=== PATIENT | female | born 1975 | race Caucasian/White ===

== ENCOUNTER → 2020-07-18 14:05 | Outpatient (REF) | payer BC, SELFPAY | LOC: ANHLAB 14:05 | PROVIDERS: PCP Internal Medicine; Visit Provider Nurse Practitioner | DX: R22.9 Localized swelling, mass and lump, unspecified (principal); D17.0 Benign lipomatous neoplasm of skin and subcutaneous tissue of head, face and neck | CPT/HCPCS: 88304 ==

== ENCOUNTER → 2021-01-03 15:42 | Outpatient (CLI) | payer BC, SELFPAY ==
--- NOTE | ~2021-01-03 | MM_ITS ---
EXAMINATION: MM scrn wade implant BI w gayatri HISTORY: Screening mammogram TECHNIQUE: Craniocaudal and mediolateral oblique 3-D tomosynthesis images with implant displacement a nd synthetic 2-D images were generated. Craniocaudal and mediolateral oblique views of the breasts wi thout implant displacement were obtained using full field digital mammography. CAD analysis was submi tted and interpreted. COMPARISON: 11/19/2019, 10/10/2018, 09/13/2017 bilateral implant digital screening mammogram examinati ons BREAST PARENCHYMAL COMPOSITION: There are scattered areas of fibroglandular density. FINDINGS: Status post bilateral augmentation mammoplasty. There is no evidence of suspicious mass, ca lcification, or architectural distortion to suggest malignancy in either breast. There has been no camacho spicious interval change. IMPRESSION: 1. No mammographic evidence of malignancy. 2. Recommend routine screening mammography in one year. BI-RADS Category 1: Negative Reviewed, dictated and finalized at location A. STERED NURSE FIRST ASSISTANT
== END ==
PROVIDERS: PCP Internal Medicine; Visit Provider Nurse Practitioner
DX: Z12.31 Encounter for screening mammogram for malignant neoplasm of breast (principal)
CPT/HCPCS: 77063; 77067

== ENCOUNTER 2022-01-05 01:24 | Day surgery (SDC) | payer BC, SELFPAY ==
[2021-12-29 14:11] VITALS: BMI 25.9
[2022-01-05 10:17] VITALS: BP 125/85; PULSE 96; RESP 18; TEMP 36.2; O2SAT 99; BMI 26.1
[2022-01-05] MEDS: LACTATED RINGERS 1,000 ML 150 ML IV CONT (10:29)
--- NOTE | 2022-01-05 11:11 | PM.HPGS ---
History of Present Illness History of Present Illness Consent: Risks, benefits, and alternatives have been discussed and questions answered. Patient agrees to proceed with procedure. Chief complaint: neoplasm screening Narrative: Lyndsey Abrams is a 46 year old female here for first screening colonoscopy Review of Systems Constitutional: Constitutional: Denies headache(s) and Denies weakness Eyes: Eyes: Denies blurry vision ENT: Reports Normal hearing present, Denies headache(s) and Denies neck pain Cardiovascular: Cardiovascular: Denies chest pain and Denies dyspnea Respiratory: Respiratory: Denies dyspnea Gastrointestinal: Gastrointestinal: Reports no additional gastrointestinal complaints Genitourinary: Genitourinary: Denies dysuria Musculoskeletal: Musculoskeletal: Denies neck pain Integumentary/Breasts: Skin/Breast: Denies dry skin Neurologic: Reports Normal hearing present, Denies headache(s) and Denies weakness Psychiatric: Psychiatric: Denies anxiety Endocrine: Endocrine: Denies change in body appearance Hematologic/Lymphatic: Hematologic/Lymphatic: Denies easy bleeding Allergic/Immunologic: Allergic/Immunologic: Denies urticaria ON LICENSE OF [facility] Past Medical History Medical History (Updated 01/05/22 @ 11:12 by Dada Horton MD) Colon cancer screening Thyroid disease Surgical History Surgical History History of augmentation mammoplasty 2002 Family History Family History Sibling Diabetes mellitus Family history of obesity Hypertension Father Family history of obesity Hypertension Patient's father is in good health Family history of cardiovascular disease Skin cancer Mother Family history of obesity Family history of malignant neoplasm of urinary bladder Social History Social History Smoking status: Never smoker Alcohol intake: current Drinks per week: 1 Substance use: never Substance use type: does not use Living arrangements: with family Spiritual care concerns: No Meds Home Medications and Allergies Home Medications Medication Instructions Recorded Confirmed Type etonogestrel 0.12 mg-ethinyl 1 vag ring VAGINAL ONCE 05/30/20 12/29/21 History estradiol 0.015 mg/24 hr vaginal ring multivitamin 1 tablet PO DAILY 05/30/20 12/29/21 History testosterone cypionate IM .3 mo 05/30/20 History [Depo-Testosterone] thyroid (pork) 120 mg tablet 150 mg PO DAILY tablet 05/30/20 12/29/21 History metformin 500 mg PO DAILY 12/29/21 12/29/21 History semaglutide 1.7 mg IM WEEKLY 12/29/21 12/29/21 History spironolactone 100 mg PO DAILY 12/29/21 12/29/21 History Allergies Allergy/AdvReac Type Severity Reaction Status Date / Time No Known Allergies Allergy Verified 01/05/22 10:17 Vital Signs Vital Signs - 24 hr 01/05/22 10:17 Temperature 97.1 F L Pulse Rate 96 Respiratory Rate 18 Blood Pressure 125/85 Pulse Oximetry 99 Exam Const: General: comfortable and no acute distress HENMT: General nose exam: Normal nares present Eyes: General: appearance normal, both eyes and all related structures Neck: Neck: no JVD Resp: Auscultation: clear to auscultation bilaterally Cardio: Rate: regular rate Rhythm: regular rhythm GI: Inspection: non-distended GI Palp: Yes Soft to palpation Skin: General skin exam: normal color Neuro: General: gait normal Speech: normal speech Extrem: General: normal to inspection Psych: Mental Status: mental status grossly normal Assessment and Plan Assessment and plan (1) Colon cancer screening: Code(s): Z12.11 - Encounter for screening for malignant neoplasm of colon Status: Acute Assessment and Plan: colonoscopy
[2022-01-05 11:30] VITALS: BP 122/77; PULSE 101; RESP 20; O2SAT 100
[2022-01-05 11:40] VITALS: BP 117/88; PULSE 84; RESP 15; O2SAT 97
[2022-01-05 11:50] VITALS: BP 125/94; PULSE 88; RESP 18; O2SAT 100
== END 2022-01-05 12:00 | disposition home or self-care (01) ==
PROVIDERS: PCP Internal Medicine; Visit Provider Internal Medicine Gastroenterology
PROC: 0DJD8ZZ Inspection of Lower Intestinal Tract, Via Natural or Artificial Opening Endoscopic (ICD-10-PCS; CPT 45378; principal; 2022-01-05 11:30)
DX: Z12.11 Encounter for screening for malignant neoplasm of colon (principal); D12.2 Benign neoplasm of ascending colon; K57.30 Diverticulosis of large intestine without perforation or abscess without bleeding
CPT/HCPCS: 45380; 88305; J7120

== ENCOUNTER → 2022-03-02 07:49 | Outpatient (CLI) | payer BC, SELFPAY ==
--- NOTE | ~2022-03-02 | MM_ITS ---
EXAMINATION: MM scrn wade implant BI w gayatri HISTORY: Screening mammogram TECHNIQUE: Craniocaudal and mediolateral oblique 3-D tomosynthesis images with implant displacement a nd synthetic 2-D images were generated. Craniocaudal and mediolateral oblique views of the breasts wi thout implant displacement were obtained using full field digital mammography. CAD analysis was submi tted and interpreted. COMPARISON: 01/03/2021, 11/19/2019, 10/10/2018, 09/13/2017, 08/02/2016 bilateral implant screening mammog [place] examinations BREAST PARENCHYMAL COMPOSITION: There are scattered areas of fibroglandular density. FINDINGS: Status post bilateral augmentation mammoplasty. Stable mild fibroglandular asymmetry includ ing chronic increased density in the left lateral subareolar area dating back to 08/02/2016.. There is no evidence of suspicious mass, calcification, or architectural distortion to suggest malignancy in either breast. There has been no suspicious interval change. IMPRESSION: 1. No mammographic evidence of malignancy. 2. Recommend routine screening mammography in one year. BI-RADS Category 2: Benign finding(s). Reviewed, dictated and finalized at location A.
== END ==
PROVIDERS: PCP Internal Medicine; Visit Provider Nurse Practitioner
DX: Z12.31 Encounter for screening mammogram for malignant neoplasm of breast (principal)
CPT/HCPCS: 77063; 77067

== ENCOUNTER → 2023-02-12 15:03 | Outpatient (CLI) | payer OTHER, SELFPAY ==
--- NOTE | ~2023-02-12 | MMUS_ITS ---
EXAMINATION: MM diag wade implant BI w gayatri, US breast LT limited HISTORY: Mastodynia TECHNIQUE: Craniocaudal, mediolateral, and mediolateral oblique 3-D tomosynthesis images with implant displacement of the breasts were performed and synthetic 2-D images were generated. Craniocaudal, m ediolateral oblique, and mediolateral views of the breasts without implant displacement were obtained using full field digital mammography. CAD analysis was submitted and interpreted. High resolution li mited left breast ultrasound was performed. COMPARISON: 03/02/2022, 01/03/2021, 11/19/2019, 10/10/2018 BREAST PARENCHYMAL COMPOSITION: There are scattered areas of fibroglandular density. FINDINGS: MAMMOGRAPHIC FINDINGS: Again noted is chronic focal asymmetry in the subareolar aspect of the left breast. No suspicious mas s, calcification, or architectural distortion are identified in either breast to suggest malignancy. There has been no suspicious interval change. No mammographic correlate is identified for the patient 's reported left breast pain. ULTRASOUND: There is no evidence of focal abnormal solid or cystic lesion in the vicinity of the patient's left b reast pain. IMPRESSION: 1. No specific mammographic or sonographic correlate is identified for the patient's reported left br east pain. Further evaluation at this time should be based on clinical assessment. Continued follow-u p physical examination is recommended. 2. Recommend routine screening mammography in one year. BI-RADS Category 2: Benign finding(s). Reviewed, dictated and finalized at location A. IMPRESSION: 1. No specific mammographic or sonographic correlate is identified for the sonia ent's reported left breast pain. Further evaluation at this time should be base d on clinical assessment. Continued follow-up physical examination is recommend ed. 2. Recommend routine screening mammography in one year. BI-RADS Category 2: Benign finding(s).
== END ==
PROVIDERS: PCP Internal Medicine; Visit Provider Advanced Practice Midwife
DX: T85.42XA Displacement of breast prosthesis and implant, initial encounter (principal); N64.4 Mastodynia
CPT/HCPCS: 76642; 77062; 77066; G0279

== ENCOUNTER → 2023-12-20 15:17 | Outpatient (CLI) | payer OTHER, SELFPAY ==
--- NOTE | ~2023-12-20 | MM_ITS ---
EXAMINATION: MM scrn wade implant BI w gayatri HISTORY: Screening mammogram TECHNIQUE: Craniocaudal and mediolateral oblique 3-D tomosynthesis images with implant displacement a nd synthetic 2-D images were generated. Craniocaudal and mediolateral oblique views of the breasts wi thout implant displacement were obtained using full field digital mammography. CAD analysis was submi tted and interpreted. COMPARISON: Comparison to multiple prior studies sequentially, with oldest reviewed study dated 08/28. BREAST PARENCHYMAL COMPOSITION: Not dense: There are scattered areas of fibroglandular density. FINDINGS: There is no evidence of suspicious mass, calcification, or architectural distortion to sugg est malignancy in either breast. There has been no suspicious interval change. IMPRESSION: 1. No mammographic evidence of malignancy. 2. Recommend routine screening mammography in one year. BI-RADS Category 1: Negative Reviewed, dictated and finalized at location A. SECURITY CONSULTANT
== END ==
PROVIDERS: PCP Nurse Practitioner; Visit Provider Nurse Practitioner
DX: Z12.31 Encounter for screening mammogram for malignant neoplasm of breast (principal)
CPT/HCPCS: 77063; 77067

== ENCOUNTER 2025-01-12 10:00 | Outpatient (CLI) | payer OTHER, SELFPAY ==
--- NOTE | ~2025-01-12 | MM_ITS ---
EXAMINATION: MM scrn wade implant BI w gayatri HISTORY: Screening mammogram TECHNIQUE: Craniocaudal and mediolateral oblique 3-D tomosynthesis images with implant displacement a nd synthetic 2-D images were generated. Craniocaudal and mediolateral oblique views of the breasts wi thout implant displacement were obtained using full field digital mammography. CAD analysis was submi tted and interpreted. COMPARISON: Comparison to multiple prior studies sequentially, with oldest reviewed study dated 09/27. BREAST PARENCHYMAL COMPOSITION: Not dense: There are scattered areas of fibroglandular density. FINDINGS: There is no evidence of suspicious mass, calcification, or architectural distortion to sugg est malignancy in either breast. There has been no suspicious interval change. IMPRESSION: 1. No mammographic evidence of malignancy. 2. Recommend routine screening mammography in one year. BI-RADS Category 1: Negative Reviewed, dictated and finalized at location B.
== END 2025-01-12 10:01 | disposition home or self-care (01) ==
LOC: MICIMG 10:00
PROVIDERS: PCP Nurse Practitioner; Visit Provider Nurse Practitioner
DX: Z12.31 Encounter for screening mammogram for malignant neoplasm of breast (principal)
CPT/HCPCS: 77063; 77067

== ENCOUNTER 2025-09-09 18:44 | Emergency (ER) | payer OTHER, SELFPAY ==
--- OUTSIDE RECORDS SUMMARY | 2025-09-09 18:47 | XMS_ITS | Clinical Summary ---
Author Organization [facility] Address [address] [place] [address] Care Team Providers Care Disaster Response Director Name Role Phone Chen Miguel CONTROL ROOM TENDER Primary Care Provider Allergies No known active allergies Medications NUVARING 0.12-0.015 MG/24HR RING insert 1 vaginal ring by vaginal route once a month leave in place for 3 weeks, remove for 1 week Vaginal [id number] 0 Active metFORMIN ER (GLUCOPHAGE-XR ) 500 MG 24 hr tablet Take 1 tablet (500 mg total) by mouth 2 (two) times daily. 3 Active testosterone 75 MG pellet Inject 1 each (75 mg total) into the skin once. Active thyroid (ARMOUR) 60 MG OR tablet Take 1 tablet (60 mg total) by mouth daily. Active semaglutide-we ight management (WEGOVY) 1.7 mg/dose injection (PEN)Indicatio ns:Weight Loss Inject 1.7 mg into the skin once a week. Indications : Weight Loss 5 Active ZEPBOUND 10 MG/0.5ML injection Inject 10 mg into the skin once a week. 4 09/02/20 25 Discontinued thyroid (ARMOUR THYROID) 300 MG Tab Take 1 tablet by mouth daily. 7 09/02/20 25 Discontinued Active Problems Problem Noted Date Diagnosed Date Polycythemia 09/03/2025 Hypothyroidism, unspecified type 09/03/2024 BMI 25.0-25.9,adult 09/03/2024 Polyp of colon, unspecified part of colon, unspe cified type 09/03/2024 Encounters Date Type Department Care Team Description 09/07/2025 Telephone [facility] Medical [facility] [place] [address] [facility] [address] [place] [address] Chen Miguel, CONTROL ROOM TENDER Record Request 09/02/2025 3:00 PM PRINTING SUPPLIES SALES REPRESENTATIVE Office [facility] [place] [address] [place] [address] Chen Miguel, CONTROL ROOM TENDER Physical 09/02/2025 Travel from Last 3 Months Immunizations Immunization Administration Dates Next Due Fluzone (IIV3, Trivalent, 0. 5 ML Prefilled Syringe) 09/02/2025,09/03/2024 Influenza (Generic) 07/15/2018 Influenza Adult (Generic) 07/26/2023,,08/10/2017,2015 Td, Adsorbed, Preservative F ree, Adult Use, Lf Unspecified 12/14/2018 Tdap (Adacel) 09/27/2019 Family History Medical History Relation Comments COPD Father Heart Disease Father 1980 Hyperlipidemia Father Hypertension Father Lung Cancer Mother Polycystic kidney disease Paternal Grandmother Relation Status Comments Father Mother Paternal Grandmother Social History Tobacco Use Types Packs/Day Years Used Date Smoking Tobacco: Never Passive Smoke Exposure: Never Smokeless Tobacco: Never Tobacco Cessation:Counseling Given: No Alcohol Use Standard Drinks/Week Comments Yes 6.7 (1 standard drink = 0.6 oz p ure alcohol) Comments No Sex and Gender Information Value Date Recorded Sex Assigned at Female 09/02/2025 3:03 PM PRINTING SUPPLIES SALES REPRESENTATIVE Legal Sex Female 12:47 PM PRINTING SUPPLIES SALES REPRESENTATIVE Gender Identity Female 09/02/2025 3:03 PM PRINTING SUPPLIES SALES REPRESENTATIVE Sexual Orientation Not on file Last Filed Vital Signs Vital Sign Reading Time Taken Comments Blood Pressure 134/80 09/02/2025 3:05 PM PRINTING SUPPLIES SALES REPRESENTATIVE Pulse 96 09/02/2025 3:05 PM PRINTING SUPPLIES SALES REPRESENTATIVE Temperature 36.7 C (98.1 F) 09/03/2024 3:26 PM PRINTING SUPPLIES SALES REPRESENTATIVE Respiratory Rate 16 09/02/2025 3:05 PM PRINTING SUPPLIES SALES REPRESENTATIVE Oxygen Saturation 100% 09/02/2025 3:05 PM PRINTING SUPPLIES SALES REPRESENTATIVE Inhaled Oxygen Concentration - - Weight 72.9 kg (160 lb 12.8 oz) 09/02/2025 3:05 PM PRINTING SUPPLIES SALES REPRESENTATIVE Height 167.6 cm (5' 6) 09/02/2025 3:05 PM PRINTING SUPPLIES SALES REPRESENTATIVE Body Mass Index 25.95 09/02/2025 3:05 PM PRINTING SUPPLIES SALES REPRESENTATIVE Plan of Treatment Upcoming Encounters Date Type Department Care Team (Late st Contact Info) Description 09/09/2026 4:00 PM PRINTING SUPPLIES SALES REPRESENTATIVE Office Visit [facility] [place] [address] [place] [address] Chen Miguel, OLAYINKA [address] [facility] [address] [place] [address] Health Maintenance Due Date Last Done Comments Cervical Cancer Screening Pap Smear (Age 30 to 64) Every 3 Years 1975 Colorectal Cancer Screening Colonoscopy (10 Years) 1975 Hepatitis C 1993 Hepatitis B Vaccines (1 of 3 - 19+ 3-dose series) 1994 Cervical Cancer Screening Pap with HPV Testing (Age 30 to 64) Every 5 Years 2005 Cervical Cancer Screening with HPV 2005 Mammogram Screening 2015 PHQ-2 (Physician [place]) 10/28/2024 Pneumococcal Vaccine: 50+ Years (1 of 1 - PCV) 2025 Zoster Vaccines (1 of 2) 2025 Annual Physical 09/02/2026 09/02/2025, 09/03/2024 COVID-19 Vaccine ( - season) 2026 09/04/2022, 09/28/2021, 12/16/2020, Additional history exists Postponed from 06/28/2025 (Patient Refused) DTaP, Tdap and Td Vaccines (2 - Td or Tdap) 09/27/2029 09/27/2019, 12/14/2018 Influenza Adult Completed 09/02/2025, 04/2024, 07/26/2023, Additional history exists Hepatitis A Vaccines Aged Out No long er eligible based on patient's age to complete this topic Meningococcal B Vaccine Aged Out No l onger eligible based on patient's age to complete this topic Meningococcal Vaccine Aged Out No pinky serene eligible based on patient's age to complete this topic RSV Immunizations Under 20 Months Aged Out No longer eligible based on patient's age to complete this topic Insurance [facility] Care Teams Disaster Response Director Relationship Specialty Start Date End Date Chen Miguel, CONTROL ROOM TENDER [address] [facility] [address] [place] [address] PCP - General NURSE PRACTITIONER 09/01/24
--- OUTSIDE RECORDS SUMMARY | 2025-09-09 18:47 | XMS_ITS | Clinical Summary ---
Author Organization [facility] Address [address] [place] [phone] Phone Care Team Providers Care Distribution Coordinator Name Role Phone Yoandy Hinkle MD Primary Care Provider Unavai lable Allergies No known active allergies Medications oxycodone-acetam inophen (PERCOCET) 5-325 mg Oral tablet Take 1 Tab by mouth every 4 hours as needed (For Pain Scale 4-6). 20 Tab 0 03/25/2010 Active Active Problems Problem Noted Date Diagnosed Date MIL, pit, GBS neg 03/23/2010 Encounters Date Type Department Care Team Description 08/31/2025 External Device Data STL ABSTRACTION Provider, Abstract 08/25/2025 External Device Data STL ABSTRACTION Provider, Abstract 08/24/2025 External Device Data ST[facility] ABSTRACTION Provider, Abstract 08/18/2025 External Device Data STL ABSTRACTION Provider, Abstract 08/17/2025 External Device Data ST[place] ABSTRACTION Provider, Abstract 07/14/2025 External Device Data STL ABSTRACTION Provider, Abstract 07/13/2025 External Device Data STL ABSTRACTION Provider, Abstract from Last 3 Months Immunizations Immunization Administration Dates Next Due INFLUENZA VACCINE QUADRIVALENT 6 MOS UP PF IM Family History Medical History Relation Name Comments Healthy Brother Heart Disease Father Hypertension Father Healthy Mother Healthy Sister Relation Name Status Comments Brother Daughter Alive Father Alive Mother Alive Sister Social History Tobacco Use Types Packs/Day Years Used Date Smoking Tobacco: Never Alcohol Use Standard Drinks/Week Comments No 0 (1 standard drink = 0.6 oz pur e alcohol) Comments Unknown Sex and Gender Information Value Date Recorded Sex Assigned at Not on file Legal Sex Female 4:18 AM TANKAGE GRINDER OPERATOR Gender Identity Not on file Sexual Orientation Not on file Last Filed Vital Signs Vital Sign Reading Time Taken Comments Blood Pressure 110/74 03/26/2010 8:20 AM CDT Pulse 80 03/26/2010 8:20 AM CDT Temperature 36.9 C (98.4 F) 03/26/2010 8:20 AM CDT Respiratory Rate 16 03/26/2010 8:20 AM CDT Oxygen Saturation 96% 03/24/2010 3:56 PM CDT Inhaled Oxygen Concentration - - Weight 88 kg (194 lb) 03/23/2010 6:42 PM CDT Height 170.2 cm (5' 7) 03/23/2010 6:42 PM CDT Body Mass Index 30.38 03/23/2010 6:42 PM CDT Plan of Treatment Health Maintenance Due Date Last Done Comments DTAP/TDAP/TD VACCINES (1 - Tdap) 1994 HEPATITIS B VACCINES (1 of 3 - 19+ 3-dose series) 07/29 HPV/Cotest (21-29) 1996 CERVICAL CANCER SCREENING 2005 HPV/Cotest (30-65) 2005 PAP SMEAR 2005 BREAST CANCER SCREENING 2015 COLORECTAL SCREENING 2020 Colorectal Cancer Screening 2020 FIT-DNA Q 3 years 2020 FIT/FOBT Q 1 year 2020 Flex Sig/CT Colonography Q 5 years 2020 INFLUENZA VACCINE (#1) 2025 07/26/2023 ZOSTER VACCINE (1 of 2) 2025 Insurance [facility] [employer] [address] OPEN ACCESS HMO RX [facility] [employer] Advance Directives For more information, please contact: [phone] * Full Code (Latest Code Status on File) Date Activated Date Inactivated Comments 03/24/2010 6:35 AM 03/26/2010 1:07 PM * Full Code Date Activated Date Inactivated Comments 03/23/2010 6:57 PM 03/24/2010 6:35 AM Care Teams Distribution Coordinator Relationship Specialty Start Date End Date Yoandy Hinkle MD PCP - General Sports Medicine 03/16/10
--- OUTSIDE RECORDS SUMMARY | 2025-09-09 18:47 | XMS_ITS | Patient Health Record ---
Author Organization [facility] Address [address] [facility] [address] [place] [address] Support Name Relationship Address Phone Lyndsey Abrams Guarantor Unknown [phone] Allergies No Known Allergies Reason For Referral No Information Medications Medication SIG (Take, Route, Frequency, Duration) Notes Start Date End Date Status NuvaRing 0.12-0.015 MG/24HR insert 1 vaginal ring by vaginal route once a month leave in place for 3 weeks, remove for 1 week Vaginal [id number]-16 Active Plan Of Treatment No Information Insurance Providers Payer Name Payer Address Payer Phone Subscriber Number Group Number Insured Name Patient Relationship to Insured Coverage Start Date Coverage End Date [employer] [address] [place] [id number] Lyndsey Abrams Self - patient is the insured 3 Medical (General) History Surgical History Surgery Date(Month/Year) * NO SURGERIES; 2013-09-15
--- OUTSIDE RECORDS SUMMARY | 2025-09-09 18:47 | XMS_ITS | Encounter Summary ---
Author Organization [facility] Address [facility] [place] [address] Care Team Providers Care Pipe Finishing Supervisor Name Role Phone Chen Miguel NP Primary Care Provider [phone] Encounter Details Date Type Department Care Team (Latest Contact Info) Description 09/01/2024 [employer] Message [facility] - [place] [address] [place], [place] [id number] Chen Miguel NP [address] [facility] [address] [place] [address] Copy of Insurance Card Social History Tobacco Use Types Packs/Day Years Used Date Smoking Tobacco: Never Assessed Comments Unknown Sex and Gender Information Value Date Recorded Sex Assigned at Female 09/02/2025 3:03 PM ASSOCIATE PROFESSOR OF ECONOMICS Legal Sex Female 12:47 PM ASSOCIATE PROFESSOR OF ECONOMICS Gender Identity Female 09/02/2025 3:03 PM ASSOCIATE PROFESSOR OF ECONOMICS Sexual Orientation Not on file documented as of this encounter Plan of Treatment Upcoming Encounters Date Type Department Care Team (Late st Contact Info) Description 09/09/2026 4:00 PM ASSOCIATE PROFESSOR OF ECONOMICS [facility] - [place] [address] [place], [place] [id number] Chen Miguel JOINTER OPERATOR [address] [facility] [address] [place], [place] [id number] documented as of this encounter Visit Diagnoses Not on filedocumented in this encounter Care Teams Pipe Finishing Supervisor Relationship Specialty Start Date End Date Chen Miguel, JOINTER OPERATOR [address] [facility] [address] [place] [address] PCP - General NURSE PRACTITIONER 09/01/24 documented as of this encounter
--- OUTSIDE RECORDS SUMMARY | 2025-09-09 18:47 | XMS_ITS | Encounter Summary ---
Author Organization [facility] Address [address] [place] [address] Care Team Providers Care Administrative Law Judge Name Role Phone Yoandy Hinkle MD Primary Care Provider Rich ding Encounter Details Date Type Department Care Team (Late st Contact Info) Description 10/26/2008 Outpatient Historical [facility] [place] [address] [place] [address] Normal Delivery Social History Tobacco Use Types Packs/Day Years Used Date Smoking Tobacco: Never Assessed Comments Unknown Sex and Gender Information Value Date Recorded Sex Assigned at Not on file Legal Sex Female 4:18 AM [employer] SALESPERSON Gender Identity Not on file Sexual Orientation Not on file documented as of this encounter Plan of Treatment Not on file documented as of this encounter Visit Diagnoses Diagnosis Normal delivery documented in this encounter Care Teams Administrative Law Judge Relationship Specialty Start Date End Date Yoandy Hinkle MD PCP - General Sports Medicine 03/16/10 documented as of this encounter
--- OUTSIDE RECORDS SUMMARY | 2025-09-09 18:47 | XMS_ITS | Clinical Summary ---
Author Organization [facility] Address [address] [facility] [place] [address] Care Team Providers Care Slab Lifting Engineer Name Role Phone Hedy Shore MD Primary Care Provider [phone]- [phone] Allergies No known active allergies Medications etonogestreL-et hinyl estradioL (NUVARING, ELURYNG) 0.12-0.015 mg/24 hr vaginal ring 1 Active spironolactone (ALDACTONE) 100 mg tablet 1 Active [place] Thyroid 300 mg tablet TAKE 1/2 TABLET BY MOUTH EVERY MORNING 30 MINUTES BEFORE EATING OR DRINKING 1 Active testosterone (TESTOPEL) 75 mg pellet Inject under the skin once Active MULTIVITAMIN ORAL Take by mouth Active UNABLE TO FIND Inject under the skin Med Name: Naltrexone 90 mg Active metFORMIN (GLUCOPHAGE) 500 mg tablet 2 Active Active Problems Problem Noted Date Diagnosed Date Hypotestosteronemia 08/21/2021 Surgical History Surgery Date Site/Laterality Comments BREAST SURGERY breast implants TONSILLECTOMY/ADENOIDECTOMY Medical History Medical History Date Comments Hypothyroid Family History Medical History Relation Name Comments Heart attack Father Hyperlipidemia Father Lung cancer Mother Cancer Other Heart disease Other Hypertension Other Polycystic kidney disease Paternal Grandmother Relation Name Status Comments Father Alive Mother Other Paternal Grandmother Social History Tobacco Use Types Packs/Day Years Used Date Smoking Tobacco: Never Smokeless Tobacco: Never AUDIT-C Answer Date Recorded Q1: How often do you have a drink containing alc ohol? 2-3 times a week 08/18/2021 Q2: How many drinks containi ng alcohol do you have on a typical day when you are drinking? 1 or 2 08/18/2021 Q3: How often do you have si x or more drinks on one occasion? Never 08/18/2021 Personal Safety Answer Date Recorded Getting School Help Needed Not on file 01/09 Comments Unknown Sex and Gender Information Value Date Recorded Sex Assigned at Not on file Legal Sex Female 9:09 AM ROOMING HOUSE KEEPER Gender Identity Not on file Sexual Orientation Not on file Last Filed Vital Signs Vital Sign Reading Time Taken Comments Blood Pressure 116/73 08/20/2022 7:59 AM CDT Pulse 64 08/20/2022 7:59 AM CDT Temperature 35.7 C (96.3 F) 08/18/2021 2:00 PM CDT Respiratory Rate - - Oxygen Saturation - - Inhaled Oxygen Concentration - - Weight 71.7 kg (158 lb) 08/20/2022 7:59 AM CDT Height 170.2 cm (5' 7) 08/20/2022 7:59 AM CDT Body Mass Index 24.75 08/20/2022 7:59 AM CDT Plan of Treatment Not on file Insurance ANTHEM ACCESS ANTHEM [place]ESS [place] [address] [place] [address] BLUE ACCESS OOS Care Teams Slab Lifting Engineer Relationship Specialty Start Date End Date Hedy Shore MD PCP - General Internal Medicine 08/01/21
--- OUTSIDE RECORDS SUMMARY | 2025-09-09 18:47 | XMS_ITS | Encounter Summary ---
Author Organization [facility] Address [address] [place] [address] Care Team Providers Care Dev Ops Engineer Name Role Phone Chen Miguel NP Primary Care Provider Reason for Visit * Reason Onset Date Comments Record Request 09/07/2025 Encounter Details Date Type Department Care Team (Late st Contact Info) Description 09/07/2025 Telephone [facility] Medical [facility] [place] [address] [place], [place] [id number] Chen Miguel NP [address] [place], [place] [id number] Record Request Social History Tobacco Use Types Packs/Day Years Used Date Smoking Tobacco: Never Passive Smoke Exposure: Never Smokeless Tobacco: Never Alcohol Use Standard Drinks/Week Comments Yes 6.7 (1 standard drink = 0.6 oz p ure alcohol) Comments No Sex and Gender Information Value Date Recorded Sex Assigned at Female 09/02/2025 3:03 PM BEAUTY SPECIALIST Legal Sex Female 12:47 PM BEAUTY SPECIALIST Gender Identity Female 09/02/2025 3:03 PM BEAUTY SPECIALIST Sexual Orientation Not on file documented as of this encounter Progress Notes * Kiana Ross MA - 09/07/2025 6:52 AM CST I have faxed [facility] for colonoscopy report 09/08/25 = received and sent to PCP TY SPECIALIST TY SPECIALIST * Kiana Ross MA - 09/07/2025 6:50 AM CST I have faxed [facility] for mammogram report 09/07/25 = received and sent to PCP TY SPECIALIST TY SPECIALIST * Kiana Ross MA - 09/07/2025 6:46 AM CST I have faxed Dr. Henry for pap report 09/08/25 = received and sent to PCP TY SPECIALIST TY SPECIALIST documented in this encounter Plan of Treatment Upcoming Encounters Date Type Department Care Team (Late st Contact Info) Description 09/09/2026 4:00 PM BEAUTY SPECIALIST Office Visit [facility] [place] [address] [place] [address] Chen Miguel NP [address] [place] [address] documented as of this encounter Visit Diagnoses Not on filedocumented in this encounter Care Teams Dev Ops Engineer Relationship Specialty Start Date End Date Chen Miguel NP [address] [place] [address] PCP - General NURSE PRACTITIONER 09/01/24 documented as of this encounter
[2025-09-09 18:49] VITALS: BP 134/96; PULSE 90; RESP 16; TEMP 36.3; O2SAT 100
--- OUTSIDE RECORDS SUMMARY | 2025-09-09 21:07 | XMS_ITS | Clinical Summary ---
Author Organization [facility] Address [address] [place] [address] Care Team Providers Care Master Chef Name Role Phone Chen Miguel MIDDLEWARE ARCHITECT Primary Care Provider Allergies No known active allergies Medications NUVARING 0.12-0.015 MG/24HR RING insert 1 vaginal ring by vaginal route once a month leave in place for 3 weeks, remove for 1 week Vaginal [id number] 0 Active metFORMIN ER (GLUCOPHAGE-XR ) 500 [...] Type Department Care Team Description 09/07/2025 Telephone [facility] Medical [facility] Multispecialty [facility] [place] [address] [place] [address] Chen Miguel, MIDDLEWARE ARCHITECT Record Request 09/02/2025 3:00 PM GROUND EQUIPMENT MECHANIC Office Visit [facility] [place] [address] [place] [address] Chen Miguel, MIDDLEWARE ARCHITECT Physical 09/02/2025 Travel from Last 3 Months [...] Sex Assigned at Female 09/02/2025 3:03 PM GROUND EQUIPMENT MECHANIC Legal Sex Female 12:47 PM GROUND EQUIPMENT MECHANIC Gender Identity Female 09/02/2025 3:03 PM GROUND EQUIPMENT MECHANIC Sexual Orientation Not on file Last Filed Vital Signs Vital Sign Reading Time Taken Comments Blood Pressure 134/80 09/02/2025 3:05 PM GROUND EQUIPMENT MECHANIC Pulse 96 09/02/2025 3:05 PM GROUND EQUIPMENT MECHANIC Temperature 36.7 C (98.1 F) 09/03/2024 3:26 PM GROUND EQUIPMENT MECHANIC Respiratory Rate 16 09/02/2025 3:05 PM GROUND EQUIPMENT MECHANIC Oxygen Saturation 100% 09/02/2025 3:05 PM GROUND EQUIPMENT MECHANIC Inhaled Oxygen Concentration - - Weight 72.9 kg (160 lb 12.8 oz) 09/02/2025 3:05 PM GROUND EQUIPMENT MECHANIC Height 167.6 cm (5' 6) 09/02/2025 3:05 PM GROUND EQUIPMENT MECHANIC Body Mass Index 25.95 09/02/2025 3:05 PM GROUND EQUIPMENT MECHANIC Plan of Treatment Upcoming Encounters Date Type Department Care Team (Late st Contact Info) Description 09/09/2026 4:00 PM GROUND EQUIPMENT MECHANIC Office Visit [facility] Medical [facility] - [place] [address] [place] [address] Chen Miguel, OLAYINKA [address] [place] [address] Health Maintenance Due Date Last Done Comments [...] HPV 2005 Mammogram Screening 2015 PHQ-2 (Physician [place]) 10/28/2024 Pneumococcal Vaccine: 50+ Years (1 of [...] patient's age to complete this topic Insurance [facility] Care Teams Master Chef Relationship Specialty Start Date End Date Chen Miguel, MIDDLEWARE ARCHITECT [address] [place] [address] PCP - General NURSE PRACTITIONER 09/01/24
--- OUTSIDE RECORDS SUMMARY | 2025-09-09 21:07 | XMS_ITS | Encounter Summary ---
Author Organization [facility] Address Formerly [facility] [place] [address] Care Team Providers Care Skewer Up Name Role Phone Cehn Miguel NP Primary Care Provider [phone] Encounter Details Date Type Department Care Team (Latest Contact Info) Description 09/01/2024 GoWorkaBitt Message [facility] [facility] [place] [address] [place], [place] [phone] Chen Miguel NP [address] [place] [address] Copy of Insurance Card Social History Tobacco Use Types Packs/Day Years Used Date Smoking Tobacco: Never Assessed Comments Unknown Sex and Gender Information Value Date Recorded Sex Assigned at Female 09/02/2025 3:03 PM POOL TECHNICIAN Legal Sex Female 12:47 PM POOL TECHNICIAN Gender Identity Female 09/02/2025 3:03 PM POOL TECHNICIAN Sexual Orientation Not on file documented as of this encounter Plan of Treatment Upcoming Encounters Date Type Department Care Team (Late st Contact Info) Description 09/09/2026 4:00 PM POOL TECHNICIAN [facility] [facility] [place] [address] [place], [place] [phone] Chen Miguel TERRAZZO TILE MAKER [address] [place], [place] [phone] documented as of this encounter Visit Diagnoses Not on filedocumented in this encounter Care Teams Skewer Up Relationship Specialty Start Date End Date Chen Miguel, TERRAZZO TILE MAKER [address] [place] [address] PCP - General NURSE PRACTITIONER 09/01/24 documented as of this encounter
--- OUTSIDE RECORDS SUMMARY | 2025-09-09 21:07 | XMS_ITS | Encounter Summary ---
Author Organization [facility] Address 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
--- OUTSIDE RECORDS SUMMARY | 2025-09-09 21:07 | XMS_ITS | Clinical Summary ---
Author Organization [facility] Address [address] [place] [phone] Phone Care Team Providers Care Sole Filler Name Role Phone Yoandy Hinkle MD Primary [...] on file Legal Sex Female 4:18 AM HEEL SLUGGER Gender Identity Not on file Sexual Orientation [...] ZOSTER VACCINE (1 of 2) 2025 Insurance [facility] [employer] Clarke [address] OPEN ACCESS HMO RX [facility] [employer] Advance Directives For more information, please contact: [phone] * Full Code (Latest Code Status on File) Date Activated Date Inactivated Comments 03/24/2010 6:35 AM 03/26/2010 1:07 PM * Full Code Date Activated Date Inactivated Comments 03/23/2010 6:57 PM 03/24/2010 6:35 AM Care Teams Sole Filler Relationship Specialty Start Date End Date Yoandy Hinkle MD PCP - General Sports Medicine 03/16/10
--- OUTSIDE RECORDS SUMMARY | 2025-09-09 21:07 | XMS_ITS | Encounter Summary ---
Author Organization [facility] Address [address] [place] [address] Care Team Providers Care Manager Medical Affairs Name Role Phone Chen Miguel NP Primary Care Provider [phone] Reason for Visit * Reason Onset Date Comments Record Request 09/07/2025 Encounter Details Date Type Department Care Team (Late st Contact Info) Description 09/07/2025 Telephone [facility] Medical Group Mult[facility] - [place] [address] [place], [place] [phone] Chen Miguel NP [address] [place], [place] [phone] Record Request Social History Tobacco Use Types Packs/Day Years Used Date Smoking Tobacco: Never Passive Smoke Exposure: Never Smokeless Tobacco: Never Alcohol Use Standard Drinks/Week Comments Yes 6.7 (1 standard drink = 0.6 oz p ure alcohol) Comments No Sex and Gender Information Value Date Recorded Sex Assigned at Female 09/02/2025 3:03 PM ADMINISTRATIVE ASST Legal Sex Female 12:47 PM ADMINISTRATIVE ASST Gender Identity Female 09/02/2025 3:03 PM ADMINISTRATIVE ASST Sexual Orientation Not on file documented as of this encounter Progress Notes * Kiana Ross MA - 09/07/2025 6:52 AM CST I have faxed [facility] for colonoscopy report 09/08/25 = received and sent to PCP NISTRATIVE ASST NISTRATIVE ASST * Kiana Ross MA - 09/07/2025 6:50 AM CST I have faxed [facility] for mammogram report 09/07/25 = received and sent to PCP NISTRATIVE ASST NISTRATIVE ASST * Kiana Ross MA - 09/07/2025 6:46 AM CST I have faxed Dr. Henry for pap report 09/08/25 = received and sent to PCP NISTRATIVE ASST NISTRATIVE ASST documented in this encounter Plan of Treatment Upcoming Encounters Date Type Department Care Team (Late st Contact Info) Description 09/09/2026 4:00 PM ADMINISTRATIVE ASST Office Visit [facility] Medical [facility] - [place] [address] [place] [address] Chen Miguel NP [address] [place] [address] documented as of this encounter Visit Diagnoses Not on filedocumented in this encounter Care Teams Manager Medical Affairs Relationship Specialty Start Date End Date Chen Miguel NP [address] [place] [address] PCP - General NURSE PRACTITIONER 09/01/24 documented as of this encounter
--- OUTSIDE RECORDS SUMMARY | 2025-09-09 21:07 | XMS_ITS | Clinical Summary ---
Author Organization [facility] 2 Address [address] [facility] [place] [address] Care Team Providers Care Biophysics Teacher Name Role Phone Hedy Shore MD Primary Care Provider [phone]- [phone] Allergies No known active allergies Medications etonogestreL-et hinyl estradioL (NUVARING, ELURYNG) 0.12-0.015 mg/24 hr vaginal ring 1 Active spironolactone (ALDACTONE) 100 mg tablet 1 Active [place] Thyroid 300 mg tablet TAKE 1/2 TABLET [...] on file Legal Sex Female 9:09 AM INSURANCE ADMINISTRATOR Gender Identity Not on file Sexual Orientation [...] ANTHEM ACCESS [place] [address] [place] [address] BLUE ACCESS OOS Care Teams Biophysics Teacher Relationship Specialty Start Date End Date Hedy Shore MD PCP - General Internal Medicine 08/01/21
[2025-09-09 21:32] LABS: Hematocrit 43.4 % (37.0-47.0); Hemoglobin 14.2 g/dL (12.0-15.0); Immature Granulocyte Percent A 0.1 % (0-0.5); Lymphocytes Absolute Auto 3.88 K/mm3 (0.9-3.2); Mean Corpuscular HGB Conc 32.7 g/dl (32-36); Mean Corpuscular Hemoglobin 30.1 pg (26-34); Mean Corpuscular Volume 91.9 fl (80-100); Nucleated Red Blood Cells Absolute Auto 0.000 K/mm3 (0.0-0.012); Nucleated Red Blood Cells Perc 0.0 % (0.0-0.2); Platelet Count Result 364 k/mm3 (150-375); Red Blood Count 4.72 M/mm3 (4.2-5.4); White Blood Count 9.8 K/mm3 (4.5-10.0)
[2025-09-09 21:43] LABS: INR 1.0; Partial Thromboplastin Time 26.9 Seconds (22.3-36.8); Prothrombin Time 12.7 Seconds (11.1-14.7)
[2025-09-09 21:56] LABS: Anion Gap 10 mmol/L (4-12); Blood Urea Nitrogen 11 mg/dL (7-17); Calcium 9.7 mg/dL (8.4-10.2); Carbon Dioxide 23 mmol/L (22-30); Chloride 102 mmol/L (98-107); Estimated CRCL calculation 69 ml/min; Estimated Glomerular Filt Rate > 60; Glucose 96 mg/dL (65-110); Potassium 3.8 mmol/L (3.4-5.0); Sodium 135 mmol/L (137-145)
--- NOTE | 2025-09-09 22:08 | ED.EXTPRO ---
HPI - Extremity Problem General Chief complaint: Extremity Problem,Nontraumatic Stated complaint: rule out DVT L leg Time Seen by Provider: 09/09/25 20:54 Source: patient Mode of arrival: ambulatory Limitations: no limitations History of Present Illness HPI Narrative: Patient presents with concern for DVT in left leg based on left calf tenderness that started today. Denies any trauma. No shortness of breath. Non smoker. She reports flying a lot as well as being on Nuvaring and testosterone pellets. No history of DVT/PE. No family history of either. PCP Chen Miguel through [facility] in [place]. Related Data Home Medications ?Medication ?Instructions ?Recorded ?Confirmed ?Last Taken ?Type etonogestrel 0.12 mg-ethinyl 1 vag ring vaginal ONCE 05/30/20 12/29/21 01/04/22 History estradiol 0.015 mg/24 hr vaginal ring (NuvaRing) multivitamin (Daily Multi-Vitamin 1 tablet PO DAILY 05/30/20 12/29/21 01/04/22 History tablet) testosterone cypionate IM .3 mo 05/30/20 01/04/22 History [Depo-Testosterone] thyroid (pork) 120 mg tablet 150 mg PO DAILY 05/30/20 12/29/21 01/04/22 History ([place] Thyroid) metformin 500 mg tablet 500 mg PO DAILY 12/29/21 12/29/21 01/04/22 History semaglutide 1.7 mg IM WEEKLY 12/29/21 12/29/21 01/04/22 History spironolactone 100 mg tablet 100 mg PO DAILY 12/29/21 12/29/21 01/04/22 History Allergies Allergy/AdvReac Type Severity Reaction Status Date / Time No Known Allergies Allergy Verified 09/09/25 18:54 [facility] Past Medical History Medical History Colon cancer screening Thyroid disease Surgical History Surgical History History of augmentation mammoplasty saline 2002 Family History Family History Sibling Diabetes mellitus Family history of obesity Hypertension Father Family history of obesity Hypertension Patient's father is in good health Family history of cardiovascular disease Skin cancer Mother Family history of obesity Family history of malignant neoplasm of urinary bladder Social History Social History Smoking status: Never smoker Alcohol intake: current Drinks per week: 1 Substance use: never Substance use type: does not use Living arrangements: with family Spiritual care concerns: No Exam Narrative: GENERAL: Well-appearing, well-nourished, and in no acute distress. HEAD: Normocephalic, atraumatic. EYES: Non injected, non icteric ENT: Nares clear, no rhinorrhea or epistaxis. Gross auditory acuity intact. NECK: Supple. No meningismus. CHEST: Speaking in full sentences. No respiratory distress. HEART: Regular rate and rhythm. . ABDOMEN: Soft, nondistended. No rigidity or guarding. Not peritoneal EXTREMITIES: Normal range of motion. No significant lower extremity edema but there is tenderness to palpation along posterior left calf which feels slightly more firm but without distinctly palpable cord. SKIN: Warm, dry, no rash. NEURO: No focal deficits. Alert and oriented. Answering questions. Following commands. Normal speech without aphasia or dysarthria. PSYCH: Normal mood and affect. Course Vital Signs Vital signs: Vital Signs Temperature 97.3 F L 09/09/25 18:49 Pulse Rate 90 09/09/25 18:49 Respiratory Rate 16 09/09/25 18:49 Blood Pressure 134/96 H 09/09/25 18:49 Pulse Oximetry 100 09/09/25 18:49 Oxygen Delivery Room Air 09/09/25 18:49 Temperature 97.3 F L 09/09/25 18:49 Pulse Rate 90 09/09/25 18:49 Respiratory Rate 16 09/09/25 18:49 Blood Pressure 134/96 H 09/09/25 18:49 Pulse Oximetry 100 09/09/25 18:49 Oxygen Delivery Room Air 09/09/25 18:49 MDM - Extremity (Nontraumatic) MDM Narrative Medical decision making narrative: Patient presents with concern for left DVT in leg. In the emergency department she is afebrile with acceptable vital signs mildly elevated diastolic blood pressure. US had been ordered from triage but at 6:45pm and US currently not available after 6pm due to staffing issues/acute schedule changes. Normal dimer. CBC with mild abnormalities on the differential but otherwise anemia thrombocytopenia, leukocytosis. Mild hyponatremia but potassium and normal renal function. CPK and Mg normal. Although patient has a normal dimer, given her history of frequent flights, being on both NuvaRing and testosterone, and the location and description of her pain without clearly identifiable etiology for an alternative cause, there is question of a possible false-negative this lab and for this reason proceed with DVT study. Shared decision making with the patient to discuss this. Amenable to proceeding with outpatietn study which is arranged with radiology department. Order provided to patient, written/printed. Given a one time dose of Xarelto empirically. Differential Diagnosis Differential diagnosis: Likely herpes zoster, cellulitis, superficial thrombophlebitis, deep vein thrombosis of lower extremity and other (symptomatic anemia; rhabdomyolysis; electrolyte abnormality) Lab Data Attestation: I reviewed the patient's lab results. 09/09/25 21:26 09/09/25 21:26 Labs: Lab Results 09/09/25 Range/Units 21:26 WBC 9.8 (4.5-10.0) K/mm3 RBC 4.72 (4.2-5.4) M/mm3 Hgb 14.2 (12.0-15.0) g/dL Hct 43.4 (37.0-47.0) % MCV 91.9 (80-100) fl MCH 30.1 (26-34) pg MCHC 32.7 (32-36) g/dl RDW 12.6 (11.5-14.5) % Plt Count 364 (150-375) k/mm3 MPV 9.4 (7.4-10.4) fl Immature Gran % (Auto) 0.1 (0-0.5) % Neut % (Auto) 47.4 (45.5-73.1) % Lymph % (Auto) 39.6 (18.3-44.2) % [place] % (Auto) 9.8 H (2.6-8.5) % Eos % (Auto) 2.5 (0-4.4) % Baso % (Auto) 0.6 (0.2-1.2) % Lymph # (Auto) 3.88 H (0.9-3.2) K/mm3 [place] # (Auto) 1.0 H (0.1-0.6) K/mm3 Eos # (Auto) 0.3 (0-0.3) K/mm3 Baso # (Auto) 0.1 (0.0-0.1) K/mm3 Abs Immat Gran (auto) 0.01 (0.00-0.031) K/mm3 Absolute Neuts (auto) 4.7 (1.3-6.7) K/mm3 Absolute Nucleated RBC 0.000 (0.0-0.012) K/mm3 Nucleated RBC % 0.0 (0.0-0.2) % PT 12.7 (11.1-14.7) Seconds INR 1.0 APTT 26.9 (22.3-36.8) Seconds D-Dimer < 0.27 (<0.48) ug/mL Sodium 135 L (137-145) mmol/L Potassium 3.8 (3.4-5.0) mmol/L Chloride 102 (98-107) mmol/L Carbon Dioxide 23 (22-30) mmol/L Anion Gap 10 (4-12) mmol/L BUN 11 (7-17) mg/dL Creatinine 0.79 (0.7-1.0) mg/dL Estim Creat Clear Calc 69 ml/min Estimated GFR > 60 (59 - ) Glucose 96 (65-110) mg/dL Calcium 9.7 (8.4-10.2) mg/dL Magnesium 1.8 (1.6-2.3) mg/dL Total Creatine Kinase 41 (30-135) U/L Discharge Plan Discharge Clinical Impression: Pain of left calf Patient Disposition: Home Condition: Stable Instructions: Antibiotic Form, Leg Cramps (ED) Additional Instructions: You can come to outpatient radiology at [place] for your DVT rule out ultrasound study tomorrow morning 09/10/25 at 7:00am. Of an abundance of precaution you were given a one time dose of blood thinner. Take the order to the appointment and if you are in an accident overnight it is important to let personnel know that you are on a blood thinner as this puts you at increased risk of bleeding. Follow-up with your primary care provider. Return to the emergency department any new or worsening symptoms. Patient Language: Slovenian Prescriptions: No Action testosterone cypionate [Depo-Testosterone] IM .3 mo thyroid (pork) [[place] Thyroid] 120 mg tablet 150 mg PO DAILY etonogestrel-ethinyl estradiol [NuvaRing] 0.12-0.015 mg/24 hr ring 1 vag ring VAGINAL ONCE multivitamin [Daily Multi-Vitamin] Tablet 1 tablet PO DAILY metformin 500 mg tablet 500 mg PO DAILY spironolactone 100 mg tablet 100 mg PO DAILY semaglutide 1.7 mg IM WEEKLY Follow-up/Referrals: Myriam,Chen Desir APRN [Primary Care Provider, Unknown] Stand Alone Forms: Work/School Release IP Time of Disposition: 22:51
[2025-09-09 22:46] LABS: Creatine Kinase 41 U/L (30-135); Magnesium 1.8 mg/dL (1.6-2.3)
[2025-09-09] MEDS: RIVAROXABAN 15 MG TABLET PO (23:01)
== END 2025-09-09 23:04 | disposition home or self-care (01) ==
PROVIDERS: Emergency Provider Student in an Organized Health Care Education/Training Program; PCP Nurse Practitioner
DX: M79.662 Pain in left lower leg (principal)
CPT/HCPCS: 36415; 80048; 82550; 83735; 85025; 85380; 85610; 85730; 99283; A9270

== ENCOUNTER 2025-09-10 07:45 | Outpatient (CLI) | payer OTHER, SELFPAY ==
--- NOTE | ~2025-09-10 | US_ITS ---
EXAM/PROCEDURE: US venous doppler LE LT HISTORY: M79.662 - Pain in left lower leg COMPARISON: None available. TECHNIQUE: Grayscale, color Doppler, and spectral analysis. FINDINGS: All major venous structures appear patent and compressible from the groin to the popliteal, at least. the visualized calf veins appear patent. No significant abnormality is seen. No adenopathy is seen. IMPRESSION: No acute findings. Reviewed, dictated and finalized at location A. REPAIRER APPRENTICE IMPRESSION: No acute findings.
--- OUTSIDE RECORDS SUMMARY | 2025-09-10 07:49 | XMS_ITS | Clinical Summary ---
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 Gender Identity Not on file Sexual Orientation [...] ZOSTER VACCINE (1 of 2) 2025 Insurance [facility] [employer] [address] OPEN ACCESS HMO RX [facility] [employer] Advance Directives For more information, please contact: [phone] * Full Code (Latest Code Status on File) Date Activated Date Inactivated Comments 03/24/2010 6:35 AM 03/26/2010 1:07 PM * Full Code Date Activated Date Inactivated Comments 03/23/2010 6:57 PM 03/24/2010 6:35 AM Care Teams Manager Equipment Relationship Specialty Start Date End Date Yoandy Hinkle MD PCP - General Sports Medicine 03/16/10
--- OUTSIDE RECORDS SUMMARY | 2025-09-10 07:49 | XMS_ITS | Clinical Summary ---
Author Organization [facility] [employer] Address [address] [address] Care Team Providers Care Lease Out Worker Name Role Phone Hedy Shore MD Primary Care Provider +1- [phone] Source Comments [facility] [employer],non-owned Affiliates and Associated Physician Practices is amultiple site organization consisting of ambulatory clinics and hospital sitesin [place], [place], [place] and [place]. This disclosure is being madepursuant to the Care Everywhere program and may not contain all information available regarding this patient. Last updated 18.[facility] [employer] Allergies No known active allergies Medications * Be aware that medications may not be up to date on this document. Alwaysverify current medications with the patient. No known medications Immunizations Immunization Administration Dates Next Due TD (ADULT), 5 LF TETANUS TOXOID, ADSORBED, PF Social History Tobacco Use Types Packs/Day Years Used Date Smoking Tobacco: Never Comments Unknown Sex and Gender Information Value Date Recorded Sex Assigned at Female 05/12/2021 11:17 AM CDT Legal Sex Female 5:59 AM LABOR RELATIONS REPRESENTATIVE Gender Identity Female 05/12/2021 11:17 AM CDT Sexual Orientation Straight 05/12/2021 11 :17 AM CDT Last Filed Vital Signs Vital Sign Reading Time Taken Comments Blood Pressure 126/78 02/13/2017 4:13 PM CDT Pulse 79 02/13/2017 4:13 PM CDT Temperature 36.7 C (98.1 F) 02/13/2017 4:13 PM CDT Respiratory Rate 16 02/13/2017 4:13 PM CDT Oxygen Saturation 99% 02/13/2017 4:13 PM CDT Inhaled Oxygen Concentration - - Weight 71.7 kg (158 lb) 02/13/2017 4:13 PM CDT Height 170.2 cm (5' 7) 02/13/2017 4:13 PM CDT Body Mass Index 24.75 02/13/2017 4:13 PM CDT Plan of Treatment Health Maintenance Due Date Last Done Comments COLOGUARD (AGES 45-75) - COL ON CA SCREENING 1975 COLON MONITORING 1975 COLONOSCOPY - COLON CA SCREENING 1975 CT COLONOGRAPHY - COLON CA SCREENING 1975 Colorectal Cancer Screening 1975 FIT - COLON CA SCREENING 1975 FLEX SIG - COLON CA SCREENING 1975 LIPID TESTING 1975 MAMMOGRAM 1975 HIV SCREENING 1990 HEPATITIS C SCREENING 08/11/1993 HEPATITIS B VACCINE (1 of 3 - 19+ 3-dose series) 1994 PAP SMEAR 1996 Cervical Cancer Screening 2005 PAP with HPV 2005 DEPRESSION SCREENING 10/28/2024 COVID-19 VACCINE (3 - 2024-2 6 season) 2025 12/16/2020, 11/17/2020 INFLUENZA VACCINE (#1) 2025 9, 07/15/2018 PNEUMOCOCCAL VACCINE 50+ (1 of 1 - PCV) 2025 ZOSTER VACCINE (1 of 2) 2025 DTAP/TDAP/TD VACCINES (2 - T d or Tdap) 12/14/2028 12/14/2018 HIB VACCINE Aged Out No longer eligi ble based on patient's age to complete this topic HPV VACCINE Aged Out No longer eligi ble based on patient's age to complete this topic MENINGOCOCCAL (Group B) VACCINE SHARED DECISION-MAKING Aged Out No longer eligible based on patient's age to complete this topic MENINGOCOCCAL GROUPS A/C/Y/W VACCINE Aged Out No longer eligible b ased on patient's age to complete this topic Insurance ANTH Care Teams Lease Out Worker Relationship Specialty Start Date End Date Hedy Shore MD [address] [place] [address] PCP - General 01/10/22
--- OUTSIDE RECORDS SUMMARY | 2025-09-10 07:49 | XMS_ITS | Encounter Summary ---
Author Organization [facility] Address [facility] [place] [address] Care Team Providers Care Client Services Manager Name Role Phone Chen Miguel BILL COLLECTOR Primary Care Provider Reason for Visit * Reason Comments Lab (SCAN) Encounter Details Date Type Department Care Team (Latest Contact Info) Description 07/17/2025 Scan HEALTH INFO SRVCS Scanned, Doc [facility] Lab (SCAN) Social History Tobacco Use Types Packs/Day Years Used Date Smoking Tobacco: Never Passive Smoke Exposure: Never Smokeless Tobacco: Never Alcohol Use Standard Drinks/Week Comments Yes 6.7 (1 standard drink = 0.6 oz p ure alcohol) Comments No Sex and Gender Information Value Date Recorded Sex Assigned at Female 09/02/2025 3:03 PM WEB MARKETING MANAGER Legal Sex Female 12:47 PM WEB MARKETING MANAGER Gender Identity Female 09/02/2025 3:03 PM WEB MARKETING MANAGER Sexual Orientation Not on file documented as of this encounter Plan of Treatment Upcoming Encounters Date Type Department Care Team (Late st Contact Info) Description 09/09/2026 4:00 PM WEB MARKETING MANAGER Office Visit [facility] - [place] [address] [place], [place] [id number] Chen Miguel NP [address] [facility] [address] [place] [address] documented as of this encounter Procedures Procedure Name Priority Date/Time Associated Diagnosis Comments OUTSIDE LAB (SCAN ORDER) 07/17/2025 documented in this encounter Results * OUTSIDE LAB (SCAN ORDER) (07/17/2025) 07/17/2025 us Doc Med [facility] Scanned SCANNING Final Resu lt documented in this encounter Visit Diagnoses Not on filedocumented in this encounter Care Teams Client Services Manager Relationship Specialty Start Date End Date Chen Miguel, BILL COLLECTOR [address] [facility] [address] [place] [address] PCP - General NURSE PRACTITIONER 09/01/24 documented as of this encounter
--- OUTSIDE RECORDS SUMMARY | 2025-09-10 07:49 | XMS_ITS | Patient Health Record ---
Author Organization [facility] Address [address] [place] [address] Support Name Relationship Address Phone Lyndsey Abrams Guarantor Unknown [phone] Allergies No Known Allergies Reason For Referral No Information Medications Medication SIG (Take, Route, Frequency, Duration) Notes Start Date End Date Status NuvaRing 0.12-0.015 MG/24HR insert 1 vaginal ring by vaginal route once a month leave in place for 3 weeks, remove for 1 week Vaginal [id number]-75 Active Plan Of Treatment No Information Insurance Providers Payer Name Payer Address Payer Phone Subscriber Number Group Number Insured Name Patient Relationship to Insured Coverage Start Date Coverage End Date C[employer] [address] [place] Manuel [id number] Lyndsey Abrams Self - patient is the insured 3 Medical (General) History Surgical History Surgery Date(Month/Year) * NO SURGERIES; 2013-09-15
--- OUTSIDE RECORDS SUMMARY | 2025-09-10 07:49 | XMS_ITS | Encounter Summary ---
Author Organization [facility] Address [address] [place] [address] Care Team Providers Care Hiv Cts Specialist Name Role Phone Yoandy Hinkle MD Primary Care Provider Rich ding Encounter Details Date Type Department Care Team (Late st Contact Info) Description 10/26/2008 Outpatient Historical [facility] [place] [address] [place] [address] Normal Delivery Social History Tobacco Use Types Packs/Day Years Used Date Smoking Tobacco: Never Assessed Comments Unknown Sex and Gender Information Value Date Recorded Sex Assigned at Not on file Legal Sex Female 4:18 AM SALES CONTRACTS ANALYST Gender Identity Not on file Sexual Orientation Not on file documented as of this encounter Plan of Treatment Not on file documented as of this encounter Visit Diagnoses Diagnosis Normal delivery documented in this encounter Care Teams Hiv Cts Specialist Relationship Specialty Start Date End Date Yoandy Hinkle MD PCP - General Sports Medicine 03/16/10 documented as of this encounter
--- OUTSIDE RECORDS SUMMARY | 2025-09-10 07:49 | XMS_ITS | Encounter Summary ---
Author Organization [facility] Address [facility] [place] [address] Care Team Providers Care Wool Hat Finisher Name Role Phone Chen Miguel NP Primary Care Provider +1- [phone] Encounter Details Date Type Department Care Team (Latest Contact Info) Description 09/01/2024 [facility] Message [facility] [place] [address] [place], [place] [id number] Chen Miguel NP [address] [facility] [address] [place] [address] Copy of Insurance Card Social History Tobacco Use Types Packs/Day Years Used Date Smoking Tobacco: Never Assessed Comments Unknown Sex and Gender Information Value Date Recorded Sex Assigned at Female 09/02/2025 3:03 PM PROPERTY MAINTENANCE SUPERVISOR Legal Sex Female 12:47 PM PROPERTY MAINTENANCE SUPERVISOR Gender Identity Female 09/02/2025 3:03 PM PROPERTY MAINTENANCE SUPERVISOR Sexual Orientation Not on file documented as of this encounter Plan of Treatment Upcoming Encounters Date Type Department Care Team (Late st Contact Info) Description 09/09/2026 4:00 PM PROPERTY MAINTENANCE SUPERVISOR [facility] [place] [address] [place], [place] [id number] Chen Miguel LADIES' LOCKER ROOM ATTENDANT [address] [facility] [address] [place], [place] [id number] documented as of this encounter Visit Diagnoses Not on filedocumented in this encounter Care Teams Wool Hat Finisher Relationship Specialty Start Date End Date Chen Miguel, LADIES' LOCKER ROOM ATTENDANT [address] [place] [address] PCP - General NURSE PRACTITIONER 09/01/24 documented as of this encounter
--- OUTSIDE RECORDS SUMMARY | 2025-09-10 07:49 | XMS_ITS | Clinical Summary ---
Author Organization [facility] Address [address] [facility] [place] [address] Care Team Providers Care Counter Roller Name Role Phone Hedy Shore MD Primary Care Provider +1- [phone] Allergies No known active allergies Medications etonogestreL-et hinyl estradioL (NUVARING, ELURYNG) 0.12-0.015 mg/24 hr vaginal ring 1 Active spironolactone (ALDACTONE) 100 mg tablet 1 Active [place] Thyroid 300 mg tablet TAKE 1/2 TABLET [...] on file Legal Sex Female 9:09 AM SECURITY MANAGEMENT SPECIALIST Gender Identity Not on file Sexual Orientation [...] ANTHEM [place]ESS [place] [address] [place] [address] BLUE ACCESS OOS Care Teams Counter Roller Relationship Specialty Start Date End Date Hedy Shore MD PCP - General Internal Medicine 08/01/21
--- OUTSIDE RECORDS SUMMARY | 2025-09-10 07:49 | XMS_ITS | Clinical Summary ---
Author Organization [facility] Address [address] [place] [address] Care Team Providers Care M1A1 Tank Crewman Name Role Phone Chen Miguel HYDRAULIC PLUMBER HELPER Primary Care Provider Allergies No known active allergies Medications NUVARING 0.12-0.015 MG/24HR RING insert 1 vaginal ring by vaginal route once a month leave in place for 3 weeks, remove for 1 week Vaginal [id number]-23 0 Active metFORMIN ER (GLUCOPHAGE-XR ) 500 [...] Type Department Care Team Description 09/07/2025 Telephone [facility] Medical [facility] Multispecialty [facility] [place] [address] [place] [address] Chen Miguel, HYDRAULIC PLUMBER HELPER Record Request 09/02/2025 3:00 PM YARDING AND FOLDING MACHINE OPERATOR Office Visit [facility] Medical [facility] Multispecialty [facility] [place] [address] [place] [address] Chen Miguel, HYDRAULIC PLUMBER HELPER Physical 09/02/2025 Travel 07/17/2025 Scan HEALTH INFO SRVCS Scanned, Doc [facility] Lab (SCAN) from Last 3 Months Immunizations Immunization Administration [...] Sex Assigned at Female 09/02/2025 3:03 PM YARDING AND FOLDING MACHINE OPERATOR Legal Sex Female 12:47 PM YARDING AND FOLDING MACHINE OPERATOR Gender Identity Female 09/02/2025 3:03 PM YARDING AND FOLDING MACHINE OPERATOR Sexual Orientation Not on file Last Filed Vital Signs Vital Sign Reading Time Taken Comments Blood Pressure 134/80 09/02/2025 3:05 PM YARDING AND FOLDING MACHINE OPERATOR Pulse 96 09/02/2025 3:05 PM YARDING AND FOLDING MACHINE OPERATOR Temperature 36.7 C (98.1 F) 09/03/2024 3:26 PM YARDING AND FOLDING MACHINE OPERATOR Respiratory Rate 16 09/02/2025 3:05 PM YARDING AND FOLDING MACHINE OPERATOR Oxygen Saturation 100% 09/02/2025 3:05 PM YARDING AND FOLDING MACHINE OPERATOR Inhaled Oxygen Concentration - - Weight 72.9 kg (160 lb 12.8 oz) 09/02/2025 3:05 PM YARDING AND FOLDING MACHINE OPERATOR Height 167.6 cm (5' 6) 09/02/2025 3:05 PM YARDING AND FOLDING MACHINE OPERATOR Body Mass Index 25.95 09/02/2025 3:05 PM YARDING AND FOLDING MACHINE OPERATOR Plan of Treatment Upcoming Encounters Date Type Department Care Team (Late st Contact Info) Description 09/09/2026 4:00 PM YARDING AND FOLDING MACHINE OPERATOR Office Visit [facility] [place] [address] [place], [place] [id number] Chen Miguel, HYDRAULIC PLUMBER HELPER [address] [place] [address] Health Maintenance Due Date Last Done Comments [...] HPV 2005 Mammogram Screening 2015 PHQ-2 (Physician [place]) 10/28/2024 Pneumococcal Vaccine: 50+ Years (1 of 1 - PCV) 2025 Zoster Vaccines (1 of 2) 2025 Annual Physical 09/02/2026 09/02/2025, 09/03/2024 COVID-19 Vaccine ( season) 2026 09/04/2022, 09/28/2021, 12/16/2020, Additional history [...] on patient's age to complete this topic Procedures Procedure Name Priority Date/Time Associated Diagnosis Comments OUTSIDE LAB (SCAN ORDER) 07/17/2025 from Last 3 Months Results * OUTSIDE LAB (SCAN ORDER) (07/17/2025) 07/17/2025 us Doc Med [facility] Scanned SCANNING Final Resu lt from Last 3 Months Insurance [facility] Care Teams [id number] Tank Crewman Relationship Specialty Start Date End Date Chen Miguel, HYDRAULIC PLUMBER HELPER [address] [facility] [address] [place] [address] PCP - General NURSE PRACTITIONER 09/01/24
== END 2025-09-10 07:46 | disposition home or self-care (01) ==
PROVIDERS: PCP Nurse Practitioner; Visit Provider Student in an Organized Health Care Education/Training Program
DX: M79.662 Pain in left lower leg (principal)
CPT/HCPCS: 93971